=== PATIENT | male | born 1965 | race Caucasian/White ===

== ENCOUNTER 2016-12-31 10:28 | Emergency (ER) | payer OTHER ==
[2016-12-31 10:40] VITALS: BP 130/80; PULSE 74; RESP 16; TEMP 98.1; O2SAT 94
[2016-12-31] MEDS ORDERED: IBUPROFEN 600 MG TAB PO ONE (10:40)
--- NOTE | 2016-12-31 11:11 | UCPHY ---
H & P Time Seen by Provider: 12/31/16 10:55 Patient Type: Established HPI/ROS: This patient presents with a chief complaint of dog bite to both upper extremities which occurred shortly before his arrival in the department. This was a provoked attack. Examination of the left upper extremity reveals multiple scratches involving primarily the forearm on the flexor surface these are all partial thickness. Examination of the right upper extremity reveals multiple lacerations and puncture wounds. On the flexor surface of the forearm on the ulnar side is a 3 in a 0.5 cm laceration which is full thickness and fairly deep. This is the only wound that I and planning to suture. On the thenar eminence is a deep puncture wound which is full thickness and causes pain with movement. There also wounds to the 3rd and 4th digits which are puncture wounds and are associated with some swelling but no deep tenderness. The patient denies any Smoking Status: Never smoked Physical Exam: This is a well-developed well-nourished male who is in no acute distress. He is alert and lucid. Examination of the left upper extremity reveals multiple scratches involving primarily the forearm on the flexor surface these are all partial thickness. Examination of the right upper extremity reveals multiple lacerations and puncture wounds. On the flexor surface of the forearm on the ulnar side is a 3 in a 0.5 cm laceration which is full thickness and fairly deep. This is the only wound that I and planning to suture. On the thenar eminence is a deep puncture wound which is full thickness and causes pain with movement. There also wounds to the 3rd and 4th digits which are puncture wounds and are associated with some swelling but no deep tenderness. The patient denies any bony tenderness, paresthesias or motor dysfunction. Constitutional: Initial Vital Signs Temperature (C) 36.7 C 12/31/16 10:36 Heart Rate 74 12/31/16 10:36 Respiratory Rate 16 12/31/16 10:36 Blood Pressure 130/80 H 12/31/16 10:36 O2 Sat (%) 94 12/31/16 10:36 O2 Delivery Mode Room Air Allergies/Adverse Reactions: indomethacin [Indomethacin] Allergy (Intermediate, Verified 12/31/16 10:39) SEVERE TURNER Home Medications: Medication Instructions Recorded ESCITALOPRAM OXALATE [Lexapro] 20 mg PO 05/22/11 Allopurinol 07/28/16 Amoxicillin/Clavulanate Pot 875 mg PO BID #14 tab 12/31/16 [Augmentin 875 MG TAB (*)] Hydrocodone/APAP 5/325 [[place] 5 mg PO Q4-6PRN PRN #10 tab 12/31/16 5/325 (*)] Medical Decision Making Procedures: The forearm laceration on the left was infiltrated with 0.5% Marcaine without epinephrine. Lat gel was applied to multiple of the other wounds involving the hand all wounds were thoroughly scrubbed and irrigated. The laceration to the distal 5th flexor ulnar side forearm was explored and there is a minor tear of the flexor carpi ulnaris tendon. I do not feel this requires any specific care. The wound was closed with 4, 02/2000 nylon sutures. Dressings were applied. - Data Points Medications Given: Discontinued Medications Amoxicillin/Clavulanate Potassium (Augmentin 875mg) 875 mg PO EDNOW ONE PRN Reason: Protocol Stop: 12/31/16 11:21 Last Admin: 12/31/16 11:20 Dose: 875 mg Ibuprofen (Motrin) 600 mg PO EDNOW ONE Stop: 12/31/16 10:41 Last Admin: 12/31/16 10:45 Dose: 600 mg Departure - Departure Disposition: Home, Routine, Self-Care Clinical Impression: Dog bite Qualifiers: Encounter type: initial encounter Qualified Code(s): W54.0XXA - Bitten by dog, initial encounter Forearm laceration Qualifiers: Encounter type: initial encounter Condition: Good Instructions: Animal Bite (ED), Laceration (ED), Care For Your Stitches (ED), Stitches Removal (ED) Additional Instructions: Wound Care Follow-Up: Removal of sutures in 12 days. Suture removal is complimentary in uncomplicated cases. Infection or abnormal findings would require reevaluation by the MD. In that case, you may be billed. Keep your arm elevated as much as possible for the next 48 hours. If you notice spreading redness, swelling, increasing pain and tenderness or siri pus you should return immediately since these findings frequently indicate infection. It usually takes 3 days from the time of injury for an infection to begin. Adult Pain & Fever Control: We recommend Acetaminophen (Tylenol) and Ibuprofen (Motrin, Advil) for pain and fever control. When fever is high or pain severe, both drugs can be used at the same time, but at different intervals. Please note the time differences. Your dose is: Acetaminophen [650]mg every 4 to 6 hours ibuprofen [600]mg every [6] hours with food OR naproxen Sodium (Aleve) [440]mg every 12 hours. Note: do not take Acetaminophen with Hydrocodone (Vicodin, Lortab) or Oxycodone (Percocet). These medications also contain Acetaminophen. No more than 3000 mg of Acetaminophen should be taken in 24 hours (for an adult) . The maximal dose of ibuprofen that it is safe in a 24-hour period is 2400 mg. You may take 400 mg every 4 hours, 600 mg every 6 hours or 800 mg every 8 hours safely. Referrals: Doctor Not,On Staff, MD [Primary Care Provider] - As per Instructions Prescriptions: Amoxicillin/Clavulanate Pot [Augmentin 875 MG TAB (*)] 875 mg PO BID #14 tab Hydrocodone/APAP 5/325 [Chavies 5/325 (*)] 5 mg PO Q4-6PRN PRN #10 tab PRN Reason: pain - PQRS PQRS Measurement: Not applicable
[2016-12-31] MEDS ORDERED: LETS SOLN TOPICAL 1 EA SYR TP ONE ×2 (11:13→11:20)
[2016-12-31] MEDS ORDERED: AMOXICILLIN/CLAVULANATE POT 875/125 MG TAB PO ONE ×2 (11:20→11:21)
== END 2016-12-31 12:57 | disposition home or self-care (01) ==
LOC: CED 10:28
PROC: 0HQEXZZ Repair Left Lower Arm Skin, External Approach (ICD-10-PCS; principal; 2016-12-31)
DX: S51.852A Open bite of left forearm, initial encounter (principal); S61.233A Puncture wound without foreign body of left middle finger without damage to nail, initial encounter; S61.235A Puncture wound without foreign body of left ring finger without damage to nail, initial encounter; W54.0XXA Bitten by dog, initial encounter
CPT/HCPCS: 12001-PO; 99214-PO; G0463-PO

== ENCOUNTER 2018-03-20 15:01 | Emergency (ER) | payer OTHER ==
[2018-03-20] MEDS ORDERED: PROPARACAINE/FLUORESCEIN SOD 5 ML OPHT.BTL ONE (15:06)
[2018-03-20] MEDS ORDERED: PROPARACAINE 0.5% 15 ML OPHT DROP ONE (15:06)
[2018-03-20 15:09] VITALS: BP 129/95
--- NOTE | 2018-03-20 15:12 | EDPHY ---
H & P Stated Complaint: W/C eye exposure to solvent Time Seen by Provider: 03/20/18 15:07 HPI/ROS: HPI CHIEF COMPLAINT: Chemical exposure left eye. 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 He has eyeglasses on. However he had some burning discomfort to his left eye and some blurriness and decided come the emergency room for evaluation. The name of the chemical is Triethylamine. Denies any other exposure. Denies pain or blurred is to right eye. He did wash his eye out for 20 min with cold water. Past Medical History: Gout, hyperlipidemia Past Surgical History: No recent surgical history Social History: Denies drugs alcohol tobacco Family History: Noncontributory ROS REVIEW OF SYSTEMS: A comprehensive 10 point review of systems is otherwise negative aside from elements mentioned in the history of present illness. Exam Constitutional appears well nontoxic no acute distress triage nursing summary reviewed, vital signs reviewed, awake/alert. Eyes right eye normal, left eye: Extraocular movement intact, no proptosis, conjunctiva normal, no injection, visual pichardo intact, anterior chamber normal , fluorescein was instilled into the left eye. There is no uptake. No scratch visualized. No corneal abrasion or ulcer or tear. Visual acuities reviewed. Otherwise unremarkable eye exam. HENT normal inspection, atraumatic, moist mucus membranes, no epistaxis, neck supple/ no meningismus, no raccoon eyes. Respiratory clear to auscultation bilaterally, normal breath sounds, no respiratory distress, no wheezing. Cardiovascular rate normal, regular rhythm, no murmur, no edema, distal pulses normal. Gastrointestinal soft, non-tender, no rebound, no guarding, normal bowel sounds, no distension, no pulsatile mass. Genitourinary no CVA tenderness. Musculoskeletal no midline vertebral tenderness, full range of motion, no calf swelling, no tenderness of extremities, no meningismus, good pulses, neurovascularly intact. Skin pink, warm, & dry, no rash, skin atraumatic. Neurologic awake, alert and oriented x 3, AAOx3, moves all 4 extremities equally, motor intact, sensory intact, CN II-XII intact, normal cerebellar, normal vision, normal speech. Psychiatric normal mood/affect. Heme/Lymph/Immune no lymphadenopathy. Differential Diagnosis: Includes but is not limited to in a particular order chemical exposure to left eye, eye irritation from chemical exposure, corneal abrasion, corneal ulcer, eye irritation Medical Decision Making: Plan for this patient, Re-evaluation: 1521: Poison Control was contacted for this patient's chemical exposure to his left eye. Poison Control recommended irrigation which she has already done. And regular eye exam no further recommendations. 1523: Patient's eye exam is unremarkable here in the emergency room I do not see any evidence of significant tear abrasion or ulcer or burn no conjunctival injection. Patient's eye exam is unremarkable here in the ER. Will refer to ophthalmology continues to have discomfort or blurry vision. I did recommend he does not rub his eye. Cool compresses. Follow up with Ophthalmology if continues to have pain blurry vision or trouble with his eye. Return emergency room if any worsening symptoms he understands. Source: Patient - Personal History Current Tetanus/Diphtheria Vaccine: Yes Current Tetanus Diphtheria and Acellular Pertussis (TDAP): Yes - Medical/Surgical History Hx Asthma: No Hx Chronic Respiratory Disease: No Hx Diabetes: No Hx Cardiac Disease: No Hx Renal Disease: No Hx Cirrhosis: No Hx Alcoholism: No Hx HIV/AIDS: No Hx Splenectomy or Spleen Trauma: No Other PMH: PCP [facility]. Gout. Tetanus UTD 2016 - Social History Smoking Status: Never smoked Constitutional: Initial Vital Signs Heart Rate 64 03/20/18 15:04 Respiratory Rate 18 03/20/18 15:04 Blood Pressure 129/95 H 03/20/18 15:04 O2 Sat (%) 95 03/20/18 15:04 O2 Delivery Mode Room Air Allergies/Adverse Reactions: indomethacin [Indomethacin] Allergy (Intermediate, Verified 12/31/16 10:39) SEVERE TURNER Home Medications: Medication Instructions Recorded ESCITALOPRAM OXALATE [Lexapro] 20 mg PO 05/22/11 Allopurinol 07/28/16 Amoxicillin/Clavulanate Pot 875 mg PO BID #14 tab 12/31/16 [Augmentin 875 MG TAB (*)] Hydrocodone/APAP 5/325 [[place] 5 mg PO Q4-6PRN PRN #10 tab 12/31/16 5/325 (*)] Departure - Departure Disposition: Home, Routine, Self-Care Clinical Impression: Chemical exposure of eye Instructions: Blurred Vision (ED) Additional Instructions: 1. Do not rub your eye today. 2. Return emergency room if any worsening pain blurry vision questions or concerns 3. Follow up with the eye doctor. Referrals: Chadd Watson MD [Primary Care Provider] - As per Instructions Chintan Junior MD [Medical Doctor] - As per Instructions
== END 2018-03-20 15:47 | disposition home or self-care (01) ==
LOC: CED 15:01
DX: Z77.098 Contact with and (suspected) exposure to other hazardous, chiefly nonmedicinal, chemicals (principal)